=== PATIENT | male | born 1960 | race Caucasian/White ===

== ENCOUNTER → 2017-06-02 | Outpatient (CLI) | payer MEDICAID, SELFPAY | PROVIDERS: Visit Provider Physician Assistant | CPT/HCPCS: 80305 ==

== ENCOUNTER 2017-06-10 11:15 | Day surgery (SDC) | payer MEDICAID, SELFPAY | END 2017-06-10 12:25 | disposition home or self-care (01) | PROVIDERS: Family Provider Emergency Medicine; Visit Provider Nurse Anesthetist, Certified Registered | DX: M51.36 Other intervertebral disc degeneration, lumbar region (principal); M47.896 Other spondylosis, lumbar region | CPT/HCPCS: 64493; 64494; 64495 ==

== ENCOUNTER → 2017-07-19 16:04 | Outpatient (REF) | payer MEDICAID, SELFPAY ==
[2017-07-19 21:37] LABS: Amphetamine/Metha Screen,Urine Negative ng/mL (<1000); Barbiturates Screen,Urine Negative ng/mL (<200); Benzodiazepines Screen,Urine Negative ng/mL (200); Cannabinoid Screen,Urine Negative ng/mL (<50); Cocaine Screen,Urine Negative ng/g (<300); Methadone Screen,Urine Negative ng/mL (<300); Opiate Screen,Urine Positive ng/mL (<300); Phencyclidine Screen,Urine Negative ng/mL (<25)
== END ==
LOC: LAB 16:04
PROVIDERS: Visit Provider Emergency Medicine
DX: Z79.899 Other long term (current) drug therapy (principal)
CPT/HCPCS: 80305

== ENCOUNTER 2017-07-25 16:40 | Inpatient (IN) | payer MEDICAID, SELFPAY ==
--- NOTE | 2017-07-25 | CT_ITS ---
CT head/brain wo con HISTORY: Altered mental status, altered level of consciousness, memory loss ITS.REASON: ALTERED MENTAL STATUS ORDERING PHYSICIAN: Frank Trevizo MD PATIENT AGE: 56 years COMPARISON: None TECHNIQUE: Axial images obtained without contrast. Brain and bone windows reviewed. FINDINGS: No midline shift, mass effect, intracranial hemorrhage, hydrocephalus, or extra-axial fluid collection is evident. The calvarium has an unremarkable appearance. No mastoid effusion. There is an air-fluid level in the right sphenoid sinus and there is mucosal thickening of the ethmoid and sphenoid sinus.. IMPRESSION: 1. No acute intracranial findings. 2. Sinus disease.
[2017-07-25 17:10] VITALS: BP 130/84; PULSE 80; RESP 18; TEMP 37.5; O2SAT 97; BMI 30.7
--- NOTE | 2017-07-25 17:18 | XR_ITS ---
XR chest portable HISTORY: ITS.REASON: cough ORDERING PHYSICIAN: Frank Trevizo MD PATIENT AGE: 56 years COMPARISON: 03/24/2016 FINDINGS: The cardiomediastinal silhouette and pulmonary vascularity are within normal limits. Patchy density is present in both lower lobes consistent with bilateral lower lobe pneumonia. No acute bony abnormalities. IMPRESSION: Bilateral lower lobe pneumonia
--- NOTE | 2017-07-25 17:19 | HMH.EDGENADL ---
ED Disposition Clinical Impression: Pancreatitis, Elevated troponin Disposition: Still a Patient Condition on Discharge: Fair Referrals: Alonso Blankenship MD [Primary Care Provider] - - Critical Care Critical Care Time: No Attestation: On , the high probability of a clinically significant, sudden or life threatening deterioration of the following system(s) required my full and direct attention, intervention and personal management. The time I documented below is in addition to time spent performing reported procedures but includes the following listed in this critical care notation. Medical Decision Making - Medical Records MR Comment: 627 pm labs in status of ordered still. 2002 patient has come back with pancreatitis also his troponin is come back elevated and plan will be admission added on a CAT scan of his abdomen since he did have fever make sure there is no complication of the pancreatitis. Vital Signs: 07/25/17 17:10 07/25/17 18:42 Temperature 99.5 F Temperature Source Oral Pulse Rate [Left Radial] 80 85 Respiratory Rate 18 Blood Pressure [Right Arm] 130/84 125/76 Blood Pressure Mean [Right Arm] 99 92 Blood Pressure Source [Right Arm] Automatic Cuff Automatic Cuff Blood Pressure Position [Right Arm] Supine Supine 02 Sat by Pulse Oximetry 97 95 Oxygen Delivery Method Room Air Room Air - Lab Data Lab Results 07/25/17 18:15: WBC 8.3, RBC 5.05, Hgb 16.2, Hct 47.6, MCV 94.2 H, MCH 32.1 H, MCHC 34.0, RDW 12.3, Plt Count 180, MPV 8.2, Neut % (Auto) 78.3, Lymph % (Auto) 12.9, [place] % (Auto) 8.2, Eos % (Auto) 0.2, Baso % (Auto) 0.4, Neut # (Auto) 6.5, Lymph # (Auto) 1.1, [place] # (Auto) 0.7, Eos # (Auto) 0.0, Baso # (Auto) 0.0 07/25/17 18:15: Sodium 137, Potassium 3.0 L, Chloride 98, Carbon Dioxide 28, Anion Gap 14.0, BUN 31 H, Creatinine 1.18, Estimated Creat Clear 100, Estimated GFR 64, Est GFR ( Amer) 78, Glucose 156 H, Calcium 9.4, Total Bilirubin 0.5, AST 277 H, ALT 136 H, Alkaline Phosphatase 67, Lactate Dehydrogenase 698 H, Troponin I 0.15 H, Total Protein 8.5 H, Albumin 4.2, Globulin 4.3 H, Albumin/Globulin Ratio 1.0 L, Lipase 2279 H 07/25/17 18:25: Influenza Type A Ag Negative, Influenza Type B Ag Negative 07/25/17 18:59: Specimen Source Right radial, O2 % Room air, ABG pH 7.44, ABG pCO2 32.3 L, ABG pO2 59.4 L, ABG HCO3 21.6 L, ABG Total CO2 22.6 L, ABG O2 Saturation 92, ABG Base Excess -2.5 L, Jacob Test Patient unable Result diagrams: 07/25/17 18:15 07/25/17 18:15 Orders (Tests/Meds): ED MEDICATIONS Generic Name Dose Route Start Last Admin Trade Name Freq PRN Reason Stop Dose Admin Sodium Chloride 2 ml 07/25/17 18:34 Saline Flush 10ml Syringe IV 08/24/17 18:33 NEEDED PRN to Dilute Lorazepam inj Discontinued Medications Generic Name Dose Route Start Last Admin Trade Name Freq PRN Reason Stop Dose Admin Sodium Chloride 1,000 mls @ 999 mls/hr 07/25/17 17:30 07/25/17 18:14 Sod Chlor 0.9% 1000ml Bag IV 07/25/17 18:30 999 mls/hr .Q1H1M MARIA ESTHER Administration Sodium Chloride 1,000 mls @ 999 mls/hr 07/25/17 19:00 07/25/17 19:31 Sod Chlor 0.9% 1000ml Bag IV 07/25/17 20:00 999 mls/hr .Q1H1M MARIA ESTHER Administration Lorazepam 0.5 mg 07/25/17 18:34 07/25/17 18:40 Ativan 2mg/Ml Vial IV 07/25/17 18:35 0.5 mg ONCE ONE Administration Ondansetron HCl 4 mg 07/25/17 17:19 07/25/17 18:14 Zofran 4mg/2ml Vial IV 07/25/17 17:20 4 mg ONCE ONE Administration ORDERS Category Date Time Status CT abdomen pelvis wo con Stat Cat Scan 07/25/17 19:[address] head/brain wo con Routine Cat Scan 07/25/17 Taken CXR --portable [XR chest portable] Stat Exams 07/25/17 17:18 Taken Urinalysis and Microscopic Stat Lab 07/25/17 17:19 Ordered Blood Culture Stat Micro 07/25/17 18:15 Received EKG Request [ECG Request by /Claire] Stat Y 07/25/17 19:59 Ordered - Mehul Inquiry Pt receiving controlled substance: No General Adult HP
[2017-07-25 18:40] LABS: Basophils % 0.4 % (0.1-2.0); Eosinophils % 0.2 % (0.1-12.0); Hematocrit 47.6 % (42.0-52.0); Hemoglobin 16.2 g/dL (14.1-18.0); Lymphocytes # 1.1 K/mm3 (0.7-4.5); Lymphocytes % 12.9 K/mm3 (10-50); Mean Corpuscular Hemoglobin 32.1 pg (27.0-31.2); Mean Corpuscular Volume 94.2 fl (80-94); Mean Platelet Volume 8.2 fl (7.4-10.4); Monocytes # 0.7 K/mm3 (0.1-1.0); Monocytes % 8.2 % (1.7-9.3); Neutrophils # 6.5 K/mm3 (1.8-7.8); Neutrophils % 78.3 % (37.0-80.0); Platelet Count 180 K/mm3 (142-424); Red Blood Count 5.05 M/mm3 (4.60-6.20); Red Cell Distribution Width 12.3 % (11.5-17.5); White Blood Count 8.3 K/mm3 (4.8-10.8)
[2017-07-25 18:42] VITALS: BP 125/76; PULSE 85; O2SAT 95
[2017-07-25 18:57] LABS: Alanine Aminotransferase 136 U/L (12-78); Albumin Level 4.2 gm/dL (3.4-5.0); Alkaline Phosphatase 67 U/L (46-116); Aspartate Amino Transferase 277 U/L (15-37); Bilirubin,Total 0.5 mg/dL (0.2-1.0); Blood Urea Nitrogen 31 mg/dL (7-18); Calcium 9.4 mg/dL (8.5-10.1); Carbon Dioxide 28 mmol/L (21.0-32.0); Chloride 98 mmol/L (98-107); Creatinine Clearance Estimated 100 mL/min (0-300); Creatinine,Serum 1.18 mg/dL (0.70-1.30); Estimated Glomerular Filt Rate 64 ml/min (>60); GFR (African American) 78 ML/MIN (>60); Globulin 4.3 gm/dl (1.3-3.2); Glucose 156 mg/dL (74-106); Lactate Dehydrogenase 698 U/L (82-234); Sodium 137 mmol/L (136-145); Total Protein,Serum 8.5 gm/dL (6.4-8.2); Troponin I 0.15 ng/ml (0.00-0.06)
[2017-07-25 19:08] LABS: Lipase 2279 u/L (73-393)
[2017-07-25 19:34] LABS: ABG Base Excess -2.5 mmol/L (-2.4-2.3); ABG HCO3 21.6 mmhg (22.0-26.0); ABG Oxygen Saturation 92 % (90-100); ABG PCO2 32.3 mmhg (35.0-45.0); ABG PH 7.44 mmol/L (7.35-7.45); ABG PO2 59.4 mmhg (80-100); ABG TCO2 22.6 mmhg (23-27)
[2017-07-25 19:36] LABS: Allen's Test Patient Unable; Oxygen ROOM AIR %; Source Right Radial
--- NOTE | 2017-07-25 19:58 | CT_ITS ---
CT abdomen pelvis wo con CLINICAL INDICATION: Pancreatitis, fever, abdominal pain ITS.REASON: pancreatitis, fever ORDERING PHYSICIAN: Frank Trevizo MD PATIENT AGE: 56 years COMPARISON: None TECHNIQUE: Axial images obtained with sagittal and coronal reformats. PROCEDURE: Oral Contrast: None IV Contrast: None . FINDINGS: Patchy Airspace disease present in the right middle lobe, right lower lobe , lingula, and left lower lobe consistent with bilateral pneumonia. No obvious effusion. The liver, gallbladder, spleen, adrenal glands, and pancreas have an unremarkable unenhanced CT appearance. No renal calculi or hydronephrosis. No ureteral calculi. No intestinal obstruction or free air. No evidence of appendicitis. There are fluid-filled small and large bowel with a few air-fluid levels in colon. This may be seen with gastroenteritis or diarrhea disease. No pelvic mass or abnormal fluid collection or focal inflammatory change. No acute bony anomalies. IMPRESSION: 1. Bilateral pneumonia in the lung bases 2. Fluid in the small and large bowel with a few air-fluid levels in the large bowel which may be seen with diarrhea disease or enteritis. 3. Unremarkable pancreas on this unenhanced exam
--- NOTE | 2017-07-25 23:56 | PC.NURSE ---
PT HELPED TO THE BATHROOM AT THIS TIME.
--- NOTE | 2017-07-26 01:01 | PC.NURSE ---
PT SLEEPING AT THIS TIME
--- NOTE | 2017-07-26 01:13 | PC.NURSE ---
PT UP TO THE BATHROOM AT THIS TIME
--- NOTE | 2017-07-26 01:18 | PC.NURSE ---
PT BACK TO BED AT THIS TIME NO C/O OR NEEDS
[2017-07-26 07:03] LABS: Microscopic, Urine URINE MICROSCOPIC (MICROSCOPIC)
[2017-07-26 07:04] LABS: Appearance,Urine CLEAR (Clear); Bilirubin,Urine Negative (Negative); Blood, Urine TRACE-I (Negative); Color,Urine YELLOW (Yellow); Glucose,Urine (UA) Negative (Negative); Ketones,Urine TRACE (Negative); Leukocyte Esterase,Urine TRACE (Negative); Nitrate,Urine Negative (Negative); PH,Urine 6.5 (5.0-8.5); Protein,Urine 1+ (Negative); Specific Gravity, Urine 1.025 (1.005-1.030); Urobilinogen,Urine 0.2 EU/dl (0.2)
[2017-07-26 07:17] LABS: WBC,Urine Occasional #/hpf (0-3)
[2017-07-26 07:18] LABS: Bacteria,Urine 3+ /lpf; RBC,Urine Occasional #/hpf (0-3)
--- NOTE | 2017-07-26 07:44 | PC.NURSE ---
notified lab staff that pt has new lab orders, spoke with gabi.
[2017-07-26 08:10] LABS: Basophils % 0.2 % (0.1-2.0); Eosinophils % 0.2 % (0.1-12.0); Lymphocytes # 1.1 K/mm3 (0.7-4.5); Lymphocytes % 17.2 K/mm3 (10-50); Mean Corpuscular HGB Conc 34.1 g/dL (31.8-35.4); Mean Corpuscular Hemoglobin 31.9 pg (27.0-31.2); Mean Corpuscular Volume 93.6 fl (80-94); Mean Platelet Volume 8.3 fl (7.4-10.4); Monocytes # 0.6 K/mm3 (0.1-1.0); Monocytes % 8.4 % (1.7-9.3); Neutrophils # 4.9 K/mm3 (1.8-7.8); Neutrophils % 74.1 % (37.0-80.0); Platelet Count 165 K/mm3 (142-424); Red Cell Distribution Width 12.4 % (11.5-17.5); White Blood Count 6.6 K/mm3 (4.8-10.8)
[2017-07-26 08:28] LABS: Alanine Aminotransferase 124 U/L (12-78); Albumin Level 3.5 gm/dL (3.4-5.0); Alkaline Phosphatase 52 U/L (46-116); Amylase 117 U/L (25-125); Anion Gap 14.2 mEq/L (5-15); Aspartate Amino Transferase 251 U/L (15-37); Bilirubin,Total 0.3 mg/dL (0.2-1.0); Blood Urea Nitrogen 25 mg/dL (7-18); Calcium 8.6 mg/dL (8.5-10.1); Carbon Dioxide 23 mmol/L (21.0-32.0); Chloride 106 mmol/L (98-107); Creatinine Clearance Estimated 129 mL/min (0-300); Creatinine,Serum 0.91 mg/dL (0.70-1.30); Estimated Glomerular Filt Rate 86 ml/min (>60); GFR (African American) 105 ML/MIN (>60); Globulin 3.6 gm/dl (1.3-3.2); Glucose 144 mg/dL (74-106); Potassium 3.2 mmoL/L (3.5-5.1); Sodium 140 mmol/L (136-145); Total Protein,Serum 7.1 gm/dL (6.4-8.2); Troponin I 0.12 ng/ml (0.00-0.06)
[2017-07-26 08:51] LABS: Lipase 2541 u/L (73-393)
--- NOTE | 2017-07-26 08:51 | PC.NURSE ---
Dr. Corley at pt BS, stated will be placing order for U/S for pt.
--- NOTE | 2017-07-26 08:52 | US_ITS ---
US gallbladder HISTORY: ITS.REASON: pancreatitis ORDERING PHYSICIAN: Alonso Blankenship MD PATIENT AGE: 56 years COMPARISON: None FINDINGS: PANCREAS: Unremarkable. No obvious mass or abnormal fluid collection. No ductal dilatation LIVER: No focal liver lesions demonstrated. Homogeneous echogenicity. No intrahepatic biliary ductal dilatation evident RIGHT KIDNEY: Unremarkable. Normal size and echogenicity. No hydronephrosis GALLBLADDER: The gallbladder appears contracted with mild thickening of the wall measuring up to 5 mm. No obvious stones or pericholecystic fluid. Common bile duct is normal at 3 mm. Incidental note made of fluid-filled bowel. IMPRESSION: Contracted gallbladder with nonspecific gallbladder wall thickening. No obvious stones or pericholecystic fluid
--- NOTE | 2017-07-26 09:05 | HMH.HP ---
*Admission Date: 07/25/17 *Chief complaint: abd pain *History of present illness: this wm who has sob and vomiting with no chest pain and no etoh use was seen in the ed ates she has been feeling sick for the past 3-4 days has been lying in bed he complains of moderate whole body ache no radiation he denies any focal pain he states he has had some nausea vomiting diarrhea states she has had some cough productive of clear phlegm and he states he has had some feverishness and chills. [facility] History I have reviewed the patient's past medical history: Yes Medical History: Reports:: Gastroesophageal Reflux Disease(GERD), Hypertension Denies:: Cancer, Diabetes Mellitus Type 1, Diabetes Mellitus Type 2, MRSA Other Medical History: Reports: Other Other Surgeries: Yes: Other Amputation: No Fractures: No - *Social History Smoking Status: Current every day smoker Tobacco Type: cigarettes # Packs/Day (cigarettes): 2 Alcohol Intake: never Substance Use Type: denies use - Psychiatric History Expresses thoughts of harming self/others: None Suicide Plan Description: No Plan *Family Hx:: Hypertension Review of Systems - Review of Systems Review of systems:: pertinent systems reviewed and negative unless documented below - Constitutional Reports fever(s) - Eyes Denies change in vision - ENT Denies sore throat - *Cardiovascular Denies chest pain at rest - *Respiratory Reports chest congestion, Reports cough, Denies coughing up blood - *Gastrointestinal Reports abdominal pain, Reports nausea, Reports vomiting - *Genitourinary Denies blood in urine - *Musculoskeletal Denies joint pain, Denies joint swelling - Integumentary/Breasts Denies rash - *Neurologic Denies localized weakness, Denies tremor(s) - Psychiatric Denies anxiety Meds Home Medications Medication Instructions Recorded Confirmed Type albuterol sulfate HFA 90 2 puff INHALATION Q6H 07/06/17 07/25/17 History mcg/actuation aerosol inhaler Diclofenac Sodium [Diclofenac 75mg 75 mg PO BID 07/25/17 07/25/17 History Tab] Fluticasone Propionate 1 spray INTRANASAL DAILY 07/25/17 07/25/17 History Gabapentin [Gabapentin 400mg Cap] 400 mg PO TID 07/25/17 07/25/17 History Lisinopril [Prinivil 10mg Tablet] 10 mg PO BID 07/25/17 07/25/17 History Lisinopril/Hydrochlorothiazide 1 tab PO QAM 07/25/17 07/25/17 History [Lisinopril-Hctz 10-12.5 mg Tab] Montelukast Sodium [Singulair] 10 mg PO QHS 07/25/17 07/25/17 History Omeprazole [Omeprazole 20mg 20 mg PO QDAY 07/25/17 07/25/17 History Capsule] Tamsulosin HCl [Flomax] 0.4 mg PO QDAY 07/25/17 07/25/17 History Allergies Allergy/AdvReac Type Severity Reaction Status Date / Time No Known Allergies Allergy Verified 07/18/17 15:29 Exam Vital signs and Labs for Last 24 Hours: Temp Pulse Resp BP Pulse Ox 99.5 F 85 18 125/76 95 07/25/17 17:10 07/25/17 18:42 07/25/17 17:10 07/25/17 18:42 07/25/17 18:42 Laboratory Results - last 24 hr 07/26/17 06:50: Urine Color Yellow, Urine Appearance Clear, Urine pH 6.5, Ur Specific [place] 1.025, Urine Protein 1+, Urine Glucose (UA) Negative, Urine Ketones Trace, Urine Blood Trace-i, Urine Nitrate Negative, Urine Bilirubin Negative, Urine Urobilinogen 0.2, Ur Leukocyte Esterase Trace, Urine RBC Occasional, Urine WBC Occasional, Ur Squamous Epith Cells 3-5, Urine Bacteria 3+ 07/26/17 07:55: WBC 6.6, RBC 4.70, Hgb 15.0, Hct 44.0, MCV 93.6, MCH 31.9 H, MCHC 34.1, RDW 12.4, Plt Count 165, MPV 8.3, Neut % (Auto) 74.1, Lymph % (Auto) 17.2, [place] % (Auto) 8.4, Eos % (Auto) 0.2, Baso % (Auto) 0.2, Neut # (Auto) 4.9, Lymph # (Auto) 1.1, [place] # (Auto) 0.6, Eos # (Auto) 0.0, Baso # (Auto) 0.0 07/26/17 07:55: Sodium 140, Potassium 3.2 L, Chloride 106, Carbon Dioxide 23, Anion Gap 14.2, BUN 25 H, Creatinine 0.91 D, Estimated Creat Clear 129, Estimated GFR 86, Est GFR ( Amer) 105 D, Glucose 144 H, Calcium 8.6, Total Bilirubin 0.3, AST 251 H, ALT 1
--- NOTE | 2017-07-26 10:13 | HMH.GSCON ---
*Admission Date: 07/25/17 *Chief complaint: sick *History of present illness: This is a 56-year-old gentleman who presented emergency department with a 3-4 day history of whole body aches . Some nausea, vomiting and intermittent diarrhea has also been noted. Is also noted a a few days . Evaluation emergency department revealed an elevated troponin, and elevated lipase, and possible bilateral pneumonia noted on CT scan. Surgical service was consulted secondary to pancreatitis. Recent alcohol intake and no recent change in medications. Review of Systems - Constitutional Reports body ache(s) - Eyes Denies change in vision - *Cardiovascular Denies chest pain - *Respiratory Reports cough - *Gastrointestinal Reports change in stools, Reports loose stools, Reports nausea, Reports vomiting - *Genitourinary Denies blood in urine - *Neurologic Denies localized weakness, Denies tremor(s) - Hematologic/Lymphatic Denies easy bleeding H History Medical History: Reports:: Gastroesophageal Reflux Disease(GERD), Hypertension Denies:: Cancer, Diabetes Mellitus Type 1, Diabetes Mellitus Type 2, MRSA Other Medical History: Reports: Other Other Surgeries: Yes: Other Amputation: No Fractures: No - *Social History Smoking Status: Current every day smoker Tobacco Type: cigarettes # Packs/Day (cigarettes): 2 Alcohol Intake: never Substance Use Type: denies use - Psychiatric History Expresses thoughts of harming self/others: None Suicide Plan Description: No Plan *Family Hx:: Hypertension Meds Home Medications Medication Instructions Recorded Confirmed Type albuterol sulfate HFA 90 2 puff INHALATION Q6H 07/06/17 07/25/17 History mcg/actuation aerosol inhaler Diclofenac Sodium [Diclofenac 75mg 75 mg PO BID 07/25/17 07/25/17 History Tab] Fluticasone Propionate 1 spray INTRANASAL DAILY 07/25/17 07/25/17 History Gabapentin [Gabapentin 400mg Cap] 400 mg PO TID 07/25/17 07/25/17 History Lisinopril [Prinivil 10mg Tablet] 10 mg PO BID 07/25/17 07/25/17 History Lisinopril/Hydrochlorothiazide 1 tab PO QAM 07/25/17 07/25/17 History [Lisinopril-Hctz 10-12.5 mg Tab] Montelukast Sodium [Singulair] 10 mg PO QHS 07/25/17 07/25/17 History Omeprazole [Omeprazole 20mg 20 mg PO QDAY 07/25/17 07/25/17 History Capsule] Tamsulosin HCl [Flomax] 0.4 mg PO QDAY 07/25/17 07/25/17 History Allergies Allergy/AdvReac Type Severity Reaction Status Date / Time No Known Allergies Allergy Verified 07/18/17 15:29 Exam Vital signs and Labs for Last 24 Hours: Temp Pulse Resp BP Pulse Ox 99.5 F 85 18 125/76 95 07/25/17 17:10 07/25/17 18:42 07/25/17 17:10 07/25/17 18:42 07/25/17 18:42 Laboratory Results - last 24 hr 07/26/17 06:50: Urine Color Yellow, Urine Appearance Clear, Urine pH 6.5, Ur Specific [place] 1.025, Urine Protein 1+, Urine Glucose (UA) Negative, Urine Ketones Trace, Urine Blood Trace-i, Urine Nitrate Negative, Urine Bilirubin Negative, Urine Urobilinogen 0.2, Ur Leukocyte Esterase Trace, Urine RBC Occasional, Urine WBC Occasional, Ur Squamous Epith Cells 3-5, Urine Bacteria 3+ 07/26/17 07:55: WBC 6.6, RBC 4.70, Hgb 15.0, Hct 44.0, MCV 93.6, MCH 31.9 H, MCHC 34.1, RDW 12.4, Plt Count 165, MPV 8.3, Neut % (Auto) 74.1, Lymph % (Auto) 17.2, [place] % (Auto) 8.4, Eos % (Auto) 0.2, Baso % (Auto) 0.2, Neut # (Auto) 4.9, Lymph # (Auto) 1.1, [place] # (Auto) 0.6, Eos # (Auto) 0.0, Baso # (Auto) 0.0 07/26/17 07:55: Sodium 140, Potassium 3.2 L, Chloride 106, Carbon Dioxide 23, Anion Gap 14.2, BUN 25 H, Creatinine 0.91 D, Estimated Creat Clear 129, Estimated GFR 86, Est GFR ( Amer) 105 D, Glucose 144 H, Calcium 8.6, Total Bilirubin 0.3, AST 251 H, ALT 124 H, Alkaline Phosphatase 52, Troponin I 0.12 H, Total Protein 7.1, Albumin 3.5 D, Globulin 3.6 H, Albumin/Globulin Ratio 1.0 L, Amylase 117, Lipase 2541 H - Constitutional no acute distress - *Routine Respiratory Exam Absent: respira
--- NOTE | 2017-07-26 10:17 | P.CONS_ITS ---
*Admission Date: 07/25/17 *Chief complaint: sick *History of present illness: This is a 56-year-old gentleman who presented emergency department with a 3-4 day history of whole body aches . Some nausea, vomiting and intermittent diarrhea has also been noted. Is also noted a a few days . Evaluation emergency department revealed an elevated troponin, and elevated lipase, and possible bilateral pneumonia noted on CT scan. Surgical service was consulted secondary to pancreatitis. Recent alcohol intake and no recent change in medications. Review of Systems - Constitutional Reports body ache(s) - Eyes Denies change in vision - *Cardiovascular Denies chest pain - *Respiratory Reports cough - *Gastrointestinal Reports change in stools, Reports loose stools, Reports nausea, Reports vomiting - *Genitourinary Denies blood in urine - *Neurologic Denies localized weakness, Denies tremor(s) - Hematologic/Lymphatic Denies easy bleeding H History Medical History: Reports:: Gastroesophageal Reflux Disease(GERD), Hypertension Denies:: Cancer, Diabetes Mellitus Type 1, Diabetes Mellitus Type 2, MRSA Other Medical History: Reports: Other Other Surgeries: Yes: Other Amputation: No Fractures: No - *Social History Smoking Status: Current every day smoker Tobacco Type: cigarettes # Packs/Day (cigarettes): 2 Alcohol Intake: never Substance Use Type: denies use - Psychiatric History Expresses thoughts of harming self/others: None Suicide Plan Description: No Plan *Family Hx:: Hypertension Meds Home Medications Medication Instructions Recorded Confirmed Type albuterol sulfate HFA 90 2 puff INHALATION Q6H 07/06/17 07/25/17 History mcg/actuation aerosol inhaler Diclofenac Sodium [Diclofenac 75mg 75 mg PO BID 07/25/17 07/25/17 History Tab] Fluticasone Propionate 1 spray INTRANASAL DAILY 07/25/17 07/25/17 History Gabapentin [Gabapentin 400mg Cap] 400 mg PO TID 07/25/17 07/25/17 History Lisinopril [Prinivil 10mg Tablet] 10 mg PO BID 07/25/17 07/25/17 History Lisinopril/Hydrochlorothiazide 1 tab PO QAM 07/25/17 07/25/17 History [Lisinopril-Hctz 10-12.5 mg Tab] Montelukast Sodium [Singulair] 10 mg PO QHS 07/25/17 07/25/17 History Omeprazole [Omeprazole 20mg 20 mg PO QDAY 07/25/17 07/25/17 History Capsule] Tamsulosin HCl [Flomax] 0.4 mg PO QDAY 07/25/17 07/25/17 History Allergies Allergy/AdvReac Type Severity Reaction Status Date / Time No Known Allergies Allergy Verified 07/18/17 15:29 Exam Vital signs and Labs for Last 24 Hours: Temp Pulse Resp BP Pulse Ox 99.5 F 85 18 125/76 95 07/25/17 17:10 07/25/17 18:42 07/25/17 17:10 07/25/17 18:42 07/25/17 18:42 Laboratory Results - last 24 hr 07/26/17 06:50: Urine Color Yellow, Urine Appearance Clear, Urine pH 6.5, Ur Specific [place] 1.025, Urine Protein 1+, Urine Glucose (UA) Negative, Urine Ketones Trace, Urine Blood Trace-i, Urine Nitrate Negative, Urine Bilirubin Negative, Urine Urobilinogen 0.2, Ur Leukocyte Esterase Trace, Urine RBC Occasional, Urine WBC Occasional, Ur Squamous Epith Cells 3-5, Urine Bacteria 3+ 07/26/17 07:55: WBC 6.6, RBC 4.70, Hgb 15.0, Hct 44.0, MCV 93.6, MCH 31.9 H, MCHC 34.1, RDW 12.4, Plt Count 165, MPV 8.3, Neut % (Auto) 74.1, Lymph % (Auto) 17.2, [place] % (Auto) 8.4, Eos % (Auto) 0.2, Baso % (Auto) 0.2, Neut # (Auto) 4.9 , Lymph # (Auto
--- NOTE | 2017-07-26 10:46 | PC.NURSE ---
contacted second floor to check on status of bed availability, stated no bed available at this time, having pt to discharge but none have left yet.
--- NOTE | 2017-07-26 11:34 | PC.NURSE ---
pt return from u/s at this time.
[2017-07-26 13:15] VITALS: BP 123/83; PULSE 75; RESP 18; TEMP 36.9; O2SAT 95; BMI 27.2
[2017-07-26 13:40] VITALS: BP 123/83; PULSE 75; RESP 18; TEMP 36.9; O2SAT 95
--- NOTE | 2017-07-26 14:03 | CA_ITS ---
PROCEDURE: 2-D M-mode and color Doppler study INDICATIONS FOR THE TEST: Chest pain COPD Heart MurmurX Tobacco Smoking Palpitations Fatigue Syncope Edema Hypertension Diabetes Mellitus Rheumatic Fever SOBXDOE ObesityXHyperlipidemia Family History HD Additional History PNEUMONIA,ELEVATED TROP PATIENT INFORMATION HEIGHT: 71 WEIGHT:195 GENDER: Male B/P:125/76 2-D/M-MODE INTERPRETATION: 2-D MEASUREMENTS OBSERVED VALUES IN CMS Right Ventricular Dimension (RVDd) 2.3 Interventricular Septum (Thickness)(IVsd) 1.03 Left Ventricular Internal Dimensions(LVIDd) 4.9 Left Ventricular Posterior Wall (Thickness)(LVPWd) 1.2 Aortic Root 3.7 Aortic Cusp Separation 2.6 Left Atrial Dimensions (LAD) 3.5 2D 1. Left atrium is qualitatively mildly enlarged, left ventricle is normal size, there is no concentric left ventricular hypertrophy, visually estimated ejection fraction of 50% with no obvious regional wall motion abnormality, there is abnormal septal motion. 2. The right atrium and right ventricle are moderately enlarged, contractility of the right ventricle is normal. 3. The aortic valve is minimally thickened and fibrosed. 4. The mitral and tricuspid valve are grossly normal. 5. The pulmonic valve is poorly visualized. 6. No significant pericardial effusion noted. DOPPLER INTERROGATION: Doppler interrogation of the aortic, mitral and tricuspid valvular presence of mild mitral and tricuspid regurgitation, tricuspid and jet velocity is insufficient for calculation of the right ventricular systolic pressure, grade 1 diastolic dysfunction seen without tissue Doppler evidence of raised left atrial pressure. CONCLUSION: 1. Mildly enlarged left atrium, normal left ventricular size, visually estimated ejection fraction 50% with no obvious regional wall motion abnormality, endocardial surface are somewhat poorly visualized. Grade 1 diastolic dysfunction seen without tissue Doppler evidence of raised left atrial pressure. 2. Mildly enlarged right atrium and right ventricle, contractility of the right ventricle is normal. 3. Mild mitral and tricuspid regurgitation 4. No significant pericardial effusion noted.
[2017-07-26 14:53] LABS: Troponin I 0.11 ng/ml (0.00-0.06)
[2017-07-26 15:58] VITALS: BP 121/72; PULSE 62; RESP 18; TEMP 36.8; O2SAT 96
--- NOTE | 2017-07-26 17:44 | PC.NURSE ---
pt has stated no complaints since arrival to floor. iv patent and infusing. v/s/s. pt ordered clear liquid diet and tolerating well. call light in reach. pt instructed to ask for assistance. will continue to monitor pt condition. pt has requested that no information be given out to anyone. established a password. reinforced that information will not be given out to anyone that does not have password.
--- NOTE | 2017-07-26 19:24 | PC.NURSE ---
1838 pt complaining of cough and requesting medicine. paged at this time
--- NOTE | 2017-07-26 19:25 | PC.NURSE ---
report given to diego kong
[2017-07-26 20:00] VITALS: BP 114/72; PULSE 72; RESP 20; TEMP 36.9; O2SAT 95
--- NOTE | 2017-07-26 22:43 | PC.NURSE ---
NOTIFIED DORIAN AT 2230 OF PATIENT NEEDING COUGH MEDICATION. ALSO ASK IF MD WAS AWARE OF ELEVATED TROPONIN. MD STATES TALKED WITH LDR NURSE, BELIEVES RELATED TO OTHER ILLNESS SINCE EKG NORMAL
[2017-07-27] VITALS (8 sets, daily range): BP systolic 103–111; BP diastolic 55–63; PULSE 60–79; RESP 18–20; TEMP 36.3–37.7; O2SAT 85–97; BMI 28.4
--- NOTE | 2017-07-27 03:59 | PC.NURSE ---
IN BED RESTING. HAS SLEPT MOST OF SHIFT. STATED WAS AWOKE 2 X FROM COUGHING. STATED COUGH MEDICATION DOESN'T LAST LONG ENOUGH. SNORED VERY LOUDLY WHILE SLEEPING, NO APNEA NOTED. LUNGS HAD RHONCHI BILAT. RESP EVEN AND NON LABORED. HAS A PRODUCTIVE COUGH, SPUTUM IS WHITE. DENIES SOA OR PAIN. IV IS PATENT. INSTRUCTED TO NOTIFY STAFF IF ANY NEEDS. BED LOCKED IN LOW POSITION, SIDE RALES UP X 2. CALL LIGHT WITHIN REACH. WILL CONTINUE TO MONITOR.
[2017-07-27 06:49] LABS: Basophils % 0.3 % (0.1-2.0); Eosinophils % 0.1 % (0.1-12.0); Hematocrit 34.7 % (42.0-52.0); Lymphocytes # 1.4 K/mm3 (0.7-4.5); Lymphocytes % 26.8 K/mm3 (10-50); Mean Corpuscular HGB Conc 34.4 g/dL (31.8-35.4); Mean Corpuscular Hemoglobin 32.4 pg (27.0-31.2); Mean Corpuscular Volume 94.2 fl (80-94); Mean Platelet Volume 8.2 fl (7.4-10.4); Monocytes # 0.4 K/mm3 (0.1-1.0); Monocytes % 7.3 % (1.7-9.3); Neutrophils # 3.4 K/mm3 (1.8-7.8); Neutrophils % 65.4 % (37.0-80.0); Platelet Count 132 K/mm3 (142-424); Red Blood Count 3.68 M/mm3 (4.60-6.20); Red Cell Distribution Width 12.4 % (11.5-17.5); White Blood Count 5.2 K/mm3 (4.8-10.8)
[2017-07-27 07:01] LABS: Lipase 2043 u/L (73-393)
[2017-07-27 07:03] LABS: Alanine Aminotransferase 92 U/L (12-78); Albumin Level 2.7 gm/dL (3.4-5.0); Albumin/Globulin Ratio 0.9 (1.1-1.8); Alkaline Phosphatase 38 U/L (46-116); Amylase 119 U/L (25-125); Anion Gap 9.1 mEq/L (5-15); Aspartate Amino Transferase 169 U/L (15-37); Bilirubin,Total 0.6 mg/dL (0.2-1.0); Blood Urea Nitrogen 13 mg/dL (7-18); Carbon Dioxide 25 mmol/L (21.0-32.0); Chloride 108 mmol/L (98-107); Chol/HDL Ratio 4.3 (1-3.5); Cholesterol 78 mg/dL (140-200); Creatinine Clearance Estimated 145 mL/min (0-300); Creatinine,Serum 0.75 mg/dL (0.70-1.30); Estimated Glomerular Filt Rate 108 ml/min (>60); GFR (African American) 131 ML/MIN (>60); Globulin 2.9 gm/dl (1.3-3.2); Glucose 76 mg/dL (74-106); HDL Cholesterol 18 mg/dL (27-67); LDL Cholesterol 21 mg/dL (0-130); Potassium 3.1 mmoL/L (3.5-5.1); Sodium 139 mmol/L (136-145); Total Protein,Serum 5.6 gm/dL (6.4-8.2); Triglycerides 194 mg/dL (30-200); VLDL Cholesterol 39 mg/dL (0-40)
[2017-07-27 07:26] LABS: Calcium 7.4 mg/dL (8.5-10.1)
[2017-07-27 07:30] LABS: Hemoglobin 11.9 g/dL (14.1-18.0)
--- NOTE | 2017-07-27 08:20 | P.PN_ITS ---
Subjective Patient reports: no new complaints Exam Vital signs and Labs for Last 24 Hours: Temp Pulse Resp BP Pulse Ox 99.5 F 60 20 104/55 97 07/27/17 07:40 07/27/17 07:40 07/27/17 07:40 07/27/17 07:40 07/27/17 07:40 Laboratory Results - last 24 hr 07/26/17 06:50: Urine Color Yellow, Urine Appearance Clear, Urine pH 6.5, Ur Specific [place] 1.025, Urine Protein 1+, Urine Glucose (UA) Negative, Urine Ketones Trace, Urine Blood Trace-i, Urine Nitrate Negative, Urine Bilirubin Negative, Urine Urobilinogen 0.2, Ur Leukocyte Esterase Trace, Urine RBC Occasional, Urine WBC Occasional, Ur Squamous Epith Cells 3-5, Urine Bacteria 3+ 07/26/17 07:55: Sodium 140, Potassium 3.2 L, Chloride 106, Carbon Dioxide 23, Anion Gap 14.2, BUN 25 H, Creatinine 0.91 D, Estimated Creat Clear 129, Estimated GFR 86, Est GFR ( Amer) 105 D, Glucose 144 H, Calcium 8.6, Total Bilirubin 0.3, AST 251 H, ALT 124 H, Alkaline Phosphatase 52, Troponin I 0.12 H, Total Protein 7.1, Albumin 3.5 D, Globulin 3.6 H, Albumin/Globulin Ratio 1.0 L, Amylase 117, Lipase 2541 H 07/26/17 14:23: Troponin I 0.11 H 07/27/17 06:30: WBC 5.2, RBC 3.68 L, Hgb 11.9 L D, Hct 34.7 L, MCV 94.2 H, MCH 32.4 H, MCHC 34.4, RDW 12.4, Plt Count 132 L, MPV 8.2, Neut % (Auto) 65.4, Lymph % (Auto) 26.8, [place] % (Auto) 7.3, Eos % (Auto) 0.1, Baso % (Auto) 0.3, Neut # (Auto) 3.4, Lymph # (Auto) 1.4, [place] # (Auto) 0.4, Eos # (Auto) 0.0, Baso # (Auto) 0.0 07/27/17 06:30: Sodium 139, Potassium 3.1 L, Chloride 108 H, Carbon Dioxide 25, Anion Gap 9.1, BUN 13 D, Creatinine 0.75, Estimated Creat Clear 145, Estimated GFR 108, Est GFR ( Amer) 131 D, Glucose 76 D, Calcium 7.4 L D, Total Bilirubin 0.6, AST 169 H D, ALT 92 H D, Alkaline Phosphatase 38 L, Total Protein 5.6 L, Albumin 2.7 L D, Globulin 2.9, Albumin/Globulin Ratio 0.9 L, Triglycerides 194, Cholesterol 78 L, LDL Cholesterol 21, VLDL Cholesterol 39, HDL Cholesterol 18 L, Cholesterol/HDL Ratio 4.3 H, Amylase 119 07/27/17 06:30: Lipase 2043 H I & O for Last 24 hours: Intake & Output 07/24/17 07/25/17 07/26/17 07/27/17 11:59 11:59 11:59 11:59 Intake Total 2680 / 2680 Balance 2680 / 2680 Weight 203 lb 6 oz Microbiology Reports for the Last 24 Hours: Microbiology 07/26/17 06:50 Urine,Clean Catch Urine Culture - Preliminary Gram Positive Cocci - Constitutional no acute distress - *Routine Respiratory Exam Absent: respiratory distress - *Routine Abdominal Exam Present: soft. Absent: tenderness Progress Note: A&P (1) CAP (community acquired pneumonia) Status: Acute Current Visit: Yes (2) Pancreatitis Status: Acute Assessment and plan: Slight improvement biochemically. Etiology indeterminate. No gallstones noted on ultrasound. No recent medical changes or alcohol intake. Continue to follow amylase/lipase and serial abdominal exams. Current Visit: Yes
--- NOTE | 2017-07-27 10:02 | P.PN_ITS ---
Internal Medicine - PN: Subj *Date: 07/27/17 *Time: 10:00 Interval history: doing better Exam Vital signs and Labs for Last 24 Hours: Temp Pulse Resp BP Pulse Ox 99.5 F 60 20 104/55 97 07/27/17 07:40 07/27/17 07:40 07/27/17 07:40 07/27/17 07:40 07/27/17 07:40 Laboratory Results - last 24 hr 07/26/17 06:50: Urine Color Yellow, Urine Appearance Clear, Urine pH 6.5, Ur Specific [place] 1.025, Urine Protein 1+, Urine Glucose (UA) Negative, Urine Ketones Trace, Urine Blood Trace-i, Urine Nitrate Negative, Urine Bilirubin Negative, Urine Urobilinogen 0.2, Ur Leukocyte Esterase Trace, Urine RBC Occasional, Urine WBC Occasional, Ur Squamous Epith Cells 3-5, Urine Bacteria 3+ 07/26/17 14:23: Troponin I 0.11 H 07/27/17 06:30: WBC 5.2, RBC 3.68 L, Hgb 11.9 L D, Hct 34.7 L, MCV 94.2 H, MCH 32.4 H, MCHC 34.4, RDW 12.4, Plt Count 132 L, MPV 8.2, Neut % (Auto) 65.4, Lymph % (Auto) 26.8, [place] % (Auto) 7.3, Eos % (Auto) 0.1, Baso % (Auto) 0.3, Neut # (Auto) 3.4, Lymph # (Auto) 1.4, [place] # (Auto) 0.4, Eos # (Auto) 0.0, Baso # (Auto) 0.0 07/27/17 06:30: Sodium 139, Potassium 3.1 L, Chloride 108 H, Carbon Dioxide 25, Anion Gap 9.1, BUN 13 D, Creatinine 0.75, Estimated Creat Clear 145, Estimated GFR 108, Est GFR ( Amer) 131 D, Glucose 76 D, Calcium 7.4 L D, Total Bilirubin 0.6, AST 169 H D, ALT 92 H D, Alkaline Phosphatase 38 L, Total Protein 5.6 L, Albumin 2.7 L D, Globulin 2.9, Albumin/Globulin Ratio 0.9 L, Triglycerides 194, Cholesterol 78 L, LDL Cholesterol 21, VLDL Cholesterol 39, HDL Cholesterol 18 L, Cholesterol/HDL Ratio 4.3 H, Amylase 119 07/27/17 06:30: Lipase 2043 H I & O for Last 24 hours: Intake & Output 07/24/17 07/25/17 07/26/17 07/27/17 11:59 11:59 11:59 11:59 Intake Total 2680 / 2680 Balance 2680 / 2680 Weight 203 lb 6 oz Microbiology Reports for the Last 24 Hours: Microbiology 07/26/17 06:50 Urine,Clean Catch Urine Culture - Preliminary Gram Positive Cocci - Constitutional no acute distress - *Routine HEENT Exam Head: Present: normocephalic Eye: Present: EOMI, PERRL ENT: Present: mucous membranes dry - *Routine Neck Exam Present: supple - *Routine Respiratory Exam Absent: respiratory distress - *Routine Cardiovascular Exam Present: RRR - *Routine Abdominal Exam Present: soft - *Routine Extremities Exam Present: cyanosis - *Routine Skin Exam Present: intact - *Routine Neurological Exam Present: alert, oriented X3, CN II-XII intact - Routine Psychiatric Exam Present: normal affect Assessment and Plan (1) CAP (community acquired pneumonia) Current visit: Yes Status: Acute Category: Medical Code(s): J18.9 - Pneumonia, unspecified organism (2) Pancreatitis Current visit: Yes Status: Acute Qualifiers: Chronicity: acute Pancreatitis type: unspecified pancreatitis type Category: Medical Code(s): K85.90 - Acute pancreatitis without necrosis or infection, unspecified
--- NOTE | 2017-07-27 19:44 | PC.NURSE ---
THIS IS A 56 YEAR OLD WHITE MALE THAT PRESENTED TO THE HOSPITAL ON 07/26 WITH A DIAGNOSIS OF ACUTE PANCREATITIS AND BILATERAL PNEUMONIA. HE HAS DONE WELL TODAY, HE CONTINUES TO HAVE A COUGH THAT IS NON PRODUCTIVE. HE IS SCHEDULED TO HAVE NEB TREATMENTS PRN, HE HAS TOLERATED THESE WELL AND FEELS THAT THESE TREATMENTS HAS HELPED HIS BREATHING. IV FLUIDS ARE INFUSING AND HE HAS IV ANTIBIOTICS ORDERED WELL. WILL CONTINUE TO MONITOR. PRISCILLA MORGAN, MSN, RN
[2017-07-28] VITALS (11 sets, daily range): BP systolic 105–132; BP diastolic 54–68; PULSE 65–88; RESP 16–22; TEMP 36.8–37.6; O2SAT 88–96
--- NOTE | 2017-07-28 05:06 | PC.NURSE ---
PT HAS C/O SOA AT TIMES THIS SHIFT. RA SAT WAS 89%, PT WAS PLACED ON 2 L NC. BREATHING TREATMENTS ADMIN PER AUG, NEEDED. LUNGS THIS AM NOTED TO HAVE RHONCHI AND CRACKLES TO BASES. DURING SLEEP PT WAS NOTED TO BE SNORING LOUDLY. PT ALSO NOTED TO HAVE 3 COUGHING EPISODES. HE STATED HE VOMITED, WAS ADMIN ZOFRAN FOR NAUSEA AND TESSALON PERLES FOR COUGH. PT O2 SAT IS 94% AT THIS TIME ON 2L NC. PT HAS DENIED ANY PAIN. NO EDEMA NOTED. MEDS ADMIN PER AUG. NO OTHER CONCERNS AT THIS TIME. WILL CONT TO MONITOR.
[2017-07-28 06:44] LABS: Amylase 106 U/L (25-125); Lipase 1609 u/L (73-393)
--- NOTE | 2017-07-28 07:00 | P.PN_ITS ---
Subjective Patient reports: other (no increased abd pain. he does describe some trouble breathing because of pneumonia overnight) Exam Vital signs and Labs for Last 24 Hours: Temp Pulse Resp BP Pulse Ox 98.2 F 70 20 105/67 96 07/28/17 04:00 07/28/17 04:00 07/28/17 04:00 07/28/17 04:00 07/28/17 04:00 Laboratory Results - last 24 hr 07/26/17 06:50: Urine Color Yellow, Urine Appearance Clear, Urine pH 6.5, Ur Specific [place] 1.025, Urine Protein 1+, Urine Glucose (UA) Negative, Urine Ketones Trace, Urine Blood Trace-i, Urine Nitrate Negative, Urine Bilirubin Negative, Urine Urobilinogen 0.2, Ur Leukocyte Esterase Trace, Urine RBC Occasional, Urine WBC Occasional, Ur Squamous Epith Cells 3-5, Urine Bacteria 3+ 07/27/17 06:30: WBC 5.2, RBC 3.68 L, Hgb 11.9 L D, Hct 34.7 L, MCV 94.2 H, MCH 32.4 H, MCHC 34.4, RDW 12.4, Plt Count 132 L, MPV 8.2, Neut % (Auto) 65.4, Lymph % (Auto) 26.8, [place] % (Auto) 7.3, Eos % (Auto) 0.1, Baso % (Auto) 0.3, Neut # (Auto) 3.4, Lymph # (Auto) 1.4, [place] # (Auto) 0.4, Eos # (Auto) 0.0, Baso # (Auto) 0.0 07/27/17 06:30: Sodium 139, Potassium 3.1 L, Chloride 108 H, Carbon Dioxide 25, Anion Gap 9.1, BUN 13 D, Creatinine 0.75, Estimated Creat Clear 145, Estimated GFR 108, Est GFR ( Amer) 131 D, Glucose 76 D, Calcium 7.4 L D, Total Bilirubin 0.6, AST 169 H D, ALT 92 H D, Alkaline Phosphatase 38 L, Total Protein 5.6 L, Albumin 2.7 L D, Globulin 2.9, Albumin/Globulin Ratio 0.9 L, Triglycerides 194, Cholesterol 78 L, LDL Cholesterol 21, VLDL Cholesterol 39, HDL Cholesterol 18 L, Cholesterol/HDL Ratio 4.3 H, Amylase 119 07/27/17 06:30: Lipase 2043 H 07/28/17 06:00: Amylase 106 D, Lipase 1609 H I & O for Last 24 hours: Intake & Output 07/25/17 07/26/17 07/27/17 07/28/17 11:59 11:59 11:59 11:59 Intake Total 2680 / 2680 1240 / 1240 Output Total 600 / 600 Balance 2680 / 2680 640 / 640 Weight 203 lb 6 oz 203 lb 5.988 oz Microbiology Reports for the Last 24 Hours: Microbiology 07/26/17 06:50 Urine,Clean Catch Urine Culture - Preliminary Gram Positive Cocci - Constitutional no acute distress - *Routine Respiratory Exam Absent: respiratory distress - *Routine Cardiovascular Exam Present: RRR - *Routine Abdominal Exam Present: soft Progress Note: A&P (1) CAP (community acquired pneumonia) Status: Acute Assessment and plan: as per PCP Current Visit: Yes (2) Pancreatitis Status: Acute Assessment and plan: Etiology remains uncertain No increased abdominal/back pain Resolving biochemically Will advance to low fat diet and continue to monitor Current Visit: Yes
--- NOTE | 2017-07-28 07:47 | PC.NURSE ---
HAND OFF TO Hesham KRAMER
--- NOTE | 2017-07-28 07:50 | HMH.PHAVTE ---
[facility] Pharmacy VTE Monitoring - Patient Demographics Admission date: 07/25/17 Report Date: 07/28/17 Time: 07:50 Allergies/Adverse Reactions: Patient Allergies No Known Allergies Allergy (Verified 07/18/17 15:29) Height: 1.8 m Weight: 92.249 kg Patient Problems: Current Active Problems Pancreatitis (Acute) Elevated troponin (Acute) CAP (community acquired pneumonia) (Acute) - VTE Risk Labs: VTE Related Lab Results Hgb 11.9 g/dL (14.1-18.0) L D 07/27/17 06:30 Hct 34.7 % (42.0-52.0) L 07/27/17 06:30 Plt Count 132 K/mm3 (142-424) L 07/27/17 06:30 BUN 13 mg/dL (7-18) D 07/27/17 06:30 Creatinine 0.75 mg/dL (0.70-1.30) 07/27/17 06:30 Estimated Creat Clear 145 mL/min (0-300) 07/27/17 06:30 Was VTE Risk Assessment Performed: Yes VTE Score: 1 VTE Risk Level: Very Low Risk - Prophylaxis VTE Prophylaxis Ordered?: Yes Types of VTE Prophylaxis: TEDS Knee High Location of Applied Device: Bilateral Lower Extremeties - VTE Diagnosis Confirmed Treatment or plan recommended: Continue Current Treatment
--- NOTE | 2017-07-28 09:12 | XR_ITS ---
XR chest 2V HISTORY: Shortness of breath ITS.REASON: sob ORDERING PHYSICIAN: Alonso Blankenship MD PATIENT AGE: 56 years COMPARISON: 07/25/2017 FINDINGS: The cardiomediastinal silhouette and pulmonary vascularity are within normal limits. Bilateral pneumonia once again noted and is worse in the left upper and left lower lung zone and right upper lobe with no change in the consolidation in the right middle lobe. No effusions. IMPRESSION: Worsening bilateral pneumonia
--- NOTE | 2017-07-28 09:13 | HMH.ACPN2 ---
Internal Medicine - PN: Subj *Date: 07/28/17 *Time: 09:13 Exam Vital signs and Labs for Last 24 Hours: Temp Pulse Resp BP Pulse Ox 98.6 F 75 18 132/54 94 L 07/28/17 07:41 07/28/17 07:41 07/28/17 07:41 07/28/17 07:41 07/28/17 07:41 Laboratory Results - last 24 hr 07/28/17 06:00: Amylase 106 D, Lipase 1609 H I & O for Last 24 hours: Intake & Output 07/25/17 07/26/17 07/27/17 07/28/17 11:59 11:59 11:59 11:59 Intake Total 2680 / 2680 6407 / 6407 Output Total 600 / 600 Balance 2680 / 2680 5807 / 5807 Weight 203 lb 6 oz 203 lb 5.988 oz Microbiology Reports for the Last 24 Hours: Microbiology 07/26/17 06:50 Urine,Clean Catch Urine Culture - Final Staphylococcus aureus - Constitutional no acute distress - *Routine HEENT Exam Head: Present: normocephalic Eye: Present: PERRL ENT: Present: mucous membranes moist - *Routine Neck Exam Present: supple, full ROM - *Routine Respiratory Exam Present: CTA bilaterally - *Routine Cardiovascular Exam Present: RRR - *Routine Abdominal Exam Present: soft, normoactive bowel sounds - *Routine Extremities Exam Present: full ROM - *Routine Skin Exam Present: intact - *Routine Neurological Exam Present: alert, oriented X3, CN II-XII intact - Routine Psychiatric Exam Present: normal affect, normal thought process Assessment and Plan (1) CAP (community acquired pneumonia) Current visit: Yes Status: Acute Category: Medical Code(s): J18.9 - Pneumonia, unspecified organism (2) Pancreatitis Current visit: Yes Status: Acute Qualifiers: Chronicity: acute Pancreatitis type: unspecified pancreatitis type Category: Medical Code(s): K85.90 - Acute pancreatitis without necrosis or infection, unspecified
--- NOTE | 2017-07-28 10:54 | PC.NURSE ---
OFF UNIT FOR CXR
--- NOTE | 2017-07-28 12:29 | PC.NURSE ---
PATIENT RETURNED FROM CXR AT 1105
--- NOTE | 2017-07-28 16:04 | PC.NURSE ---
PATIENT HAS BEEN SLEEPING OFF AND ON T/O SHIFT. THIS NURSE FEELS THE PATIENT MAY BENEFIT FROM A SLEEP STUDY HE DOES SEEM TO HAVE SOME MODERATE/SEVERE SLEEP APNEA. DENIES PAIN AT THIS TIME. PATIENT IS C/O PERSISTENT COUGH NOT RELIEVED BY TESSLON. LUNGS ARE DIMINISHED T/O WITH SOME FINE CRACKLES IN BILATERAL BASES. CALL LIGHT WITHIN REACH WILL CONTINUE TO MONITOR.
[2017-07-28 16:44] LABS: Adenovirus,PCR Not Detected (NotDetected); Bordetella Pertussis Not Detected (NotDetected); Chlamydophila Pneumoniae, PCR Not Detected (NotDetected); Coronavirus 229E Not Detected (NotDetected); Coronavirus NL63 Not Detected (NotDetected); Coronavirus OC43 Not Detected (NotDetected); Coronovirus HKU1,PCR Not Detected (NotDetected); Human Metapneumovirus Not Detected (NotDetected); Influenza A, PCR Not Detected (NotDetected); Influenza AH1, 2009 Not Detected (NotDetected); Influenza AH1, PCR Not Detected (NotDetected); Influenza AH3,PCR Not Detected (NotDetected); Influenza B, PCR Not Detected (NotDetected); Mycoplasma Pneumoniae, PCR Not Detected (NotDected); Parainfluenza 1, PCR Not Detected (NotDetected); Parainfluenza 2, PCR Not Detected (NotDetected); Parainfluenza 3, PCR Not Detected (NotDetected); Parainfluenza 4, PCR Not Detected (NotDetected); Respiratory Syncytial Virus Not Detected (NotDetected); Rhinovirus/Enterovirus Not Detected (NotDetected)
--- NOTE | 2017-07-28 19:04 | PC.NURSE ---
REPORT GIVEN TO SERGEY GIL RN
[2017-07-29 00:05] VITALS: PULSE 76; PULSE 85
[2017-07-29 04:16] VITALS: BP 115/62; PULSE 66; RESP 18; TEMP 36.1; O2SAT 100
--- NOTE | 2017-07-29 04:35 | PC.NURSE ---
NO ACUTE CHANGES NOTED. PT HAS RESTED WELL THIS SHIFT. C/O SOA X1. REMAINS ON RA @ 93%. LUNG SOUNDS ARE DIMINISHED WITH FINE CRACKLES TO BASES. VSS. NO OTHER CONCERNS AT THIS TIME. WILL CONT TO MONITOR.
--- NOTE | 2017-07-29 06:37 | P.PN_ITS ---
Subjective Patient reports: feels better Exam Vital signs and Labs for Last 24 Hours: Temp Pulse Resp BP Pulse Ox 97.0 F L 66 18 115/62 100 07/29/17 04:16 07/29/17 04:16 07/29/17 04:16 07/29/17 04:16 07/29/17 04:16 Laboratory Results - last 24 hr 07/28/17 06:00: Amylase 106 D, Lipase 1609 H 07/28/17 16:43: Chlamy pneumoniae PCR Not detected, Adenovirus (PCR) Not detected, B.parapertussis DNA PCR Not detected, Coronavirus OC43 (PCR) Not detected, Coronavirus HKU1 (PCR) Not detected, Coronavirus 229E (PCR) Not detected, Coronavirus NL63 (PCR) Not detected, Human Metapneumovir PCR Not detected, Influenza A (H1) PCR Not detected, Influ A (H1N1/09) PCR Not detected , Influenza A (H3) PCR Not detected, Influenza Type A (PCR) Not detected, Influenza Type B (PCR) Not detected, M. pneumoniae (PCR) Not detected, Parainfluenza 1 (PCR) Not detected, Parainfluenza 2 (PCR) Not detected, Parainfluenza 3 (PCR) Not detected, Parainfluenza 4 (PCR) Not detected, RSV (PCR ) Not detected, Entero/Rhino (PCR) Not detected I & O for Last 24 hours: Intake & Output 07/26/17 07/27/17 07/28/17 07/29/17 11:59 11:59 11:59 11:59 Intake Total 2680 / 2680 6407 / 6407 240 / 240 Output Total 600 / 600 1400 / 1400 Balance 2680 / 2680 5807 / 5807 -1160 / -1160 Weight 203 lb 6 oz 203 lb 5.988 oz Microbiology Reports for the Last 24 Hours: Microbiology 07/28/17 10:12 Sputum - Expectorated Sputum Gram Stain - Final 07/26/17 06:50 Urine,Clean Catch Urine Culture - Final Staphylococcus aureus - Constitutional no acute distress - *Routine Respiratory Exam Absent: respiratory distress - *Routine Cardiovascular Exam Present: RRR - *Routine Abdominal Exam Present: soft Progress Note: A&P (1) CAP (community acquired pneumonia) Status: Acute Assessment and plan: as per PCP Current Visit: Yes (2) Pancreatitis Status: Acute Assessment and plan: Uncertain etiology...no definitive evidence of recent alcohol use, medication changes, exposures, or gallstones. F/U AM labs Current Visit: Yes
[2017-07-29 06:47] VITALS: PULSE 72; O2SAT 92
[2017-07-29 07:24] LABS: Amylase 55 U/L (25-125); Lipase 456 u/L (73-393)
--- NOTE | 2017-07-29 07:31 | PC.NURSE ---
PT REPORT HAND OFF TO Wilber WHITFIELD
[2017-07-29 07:35] VITALS: BP 105/60; PULSE 69; RESP 16; TEMP 37; O2SAT 95
--- NOTE | 2017-07-29 09:45 | HMH.DCSUM ---
General - General Admission date: 07/25/17 Discharge date: 07/29/17 HPI HPI: This is a 56-year-old gentleman who presented emergency department with a 3-4 day history of whole body aches . Some nausea, vomiting and intermittent diarrhea has also been noted. Is also noted a a few days . Evaluation emergency department revealed an elevated troponin, and elevated lipase, and possible bilateral pneumonia noted on CT scan. Surgical service was consulted secondary to pancreatitis. Recent alcohol intake and no recent change in medications. Objective Vital signs: Temp Pulse Resp BP Pulse Ox 98.6 F 69 16 105/60 95 07/29/17 07:35 07/29/17 07:35 07/29/17 07:35 07/29/17 07:35 07/29/17 07:35 no acute distress - *Routine HEENT Exam Head: Present: normocephalic Eye: Present: PERRL ENT: Present: mucous membranes moist - *Routine Neck Exam Present: supple, full ROM - *Routine Respiratory Exam Present: decreased breath sounds - *Routine Cardiovascular Exam Present: RRR - *Routine Abdominal Exam Present: soft, normoactive bowel sounds - *Routine Extremities Exam Present: full ROM - *Routine Skin Exam Present: intact - *Routine Neurological Exam Present: alert, oriented X3 - Routine Psychiatric Exam Present: normal affect, normal thought process Hospital Course Hospital Course: Surgery consult see note echo:ONCLUSION: 1. Mildly enlarged left atrium, normal left ventricular size, visually estimated ejection fraction 50% with no obvious regional wall motion abnormality, endocardial surface are somewhat poorly visualized. Grade 1 diastolic dysfunction seen without tissue Doppler evidence of raised left atrial pressure. 2. Mildly enlarged right atrium and right ventricle, contractility of the right ventricle is normal. 3. Mild mitral and tricuspid regurgitation 4. No significant pericardial effusion noted. abd ultrasound: IMPRESSION: Contracted gallbladder with nonspecific gallbladder wall thickening. No obvious stones or pericholecystic fluid ct abd pelvis:IMPRESSION: 1. Bilateral pneumonia in the lung bases 2. Fluid in the small and large bowel with a few air-fluid levels in the large bowel which may be seen with diarrhea disease or enteritis. 3. Unremarkable pancreas on this unenhanced exam Today patient states he feels much better. Lipase has decreased, patient says he is eating well. states that she would likely study done as an outpatient because patient wakes up in the middle of the night gasping. Waiting for Legionella's result. Discharge home with follow-up in the office at the first part of the week. Results Labs on day of discharge: Labs from last 24 hours 07/29/17 07/28/17 06:30 16:43 Amylase 55 Lipase 456 H Chlamy pneumoniae PCR Not detected Adenovirus (PCR) Not detected B.parapertussis DNA PCR Not detected Coronavirus OC43 (PCR) Not detected Coronavirus HKU1 (PCR) Not detected Coronavirus 229E (PCR) Not detected Coronavirus NL63 (PCR) Not detected Human Metapneumovir PCR Not detected Influenza A (H1) PCR Not detected Influ A (H1N1/09) PCR Not detected Influenza A (H3) PCR Not detected Influenza Type A (PCR) Not detected Influenza Type B (PCR) Not detected M. pneumoniae (PCR) Not detected Parainfluenza 1 (PCR) Not detected Parainfluenza 2 (PCR) Not detected Parainfluenza 3 (PCR) Not detected Parainfluenza 4 (PCR) Not detected RSV (PCR) Not detected Entero/Rhino (PCR) Not detected DS: Diagnosis - Discharge Diagnosis (1) CAP (community acquired pneumonia) Status: Acute (2) Pancreatitis Status: Acute Discharge Plan - Patient Discharge Instructions ACTIVITY: Continue current activity DIET: continue same diet Patient Instructions: Fat-Restricted Diet - Follow up Plan Follow up with: Yovany Corley MD [Staff Physician] - 2 weeks Alonso Blankenship MD [Primary Care Provider] - 1
--- NOTE | 2017-07-29 10:32 | P.PN_ITS ---
Internal Medicine - PN: Subj *Date: 07/29/17 *Time: 10:31 Exam Vital signs and Labs for Last 24 Hours: Temp Pulse Resp BP Pulse Ox 98.6 F 69 16 105/60 95 07/29/17 07:35 07/29/17 07:35 07/29/17 07:35 07/29/17 07:35 07/29/17 07:35 Laboratory Results - last 24 hr 07/28/17 16:43: Chlamy pneumoniae PCR Not detected, Adenovirus (PCR) Not detected, B.parapertussis DNA PCR Not detected, Coronavirus OC43 (PCR) Not detected, Coronavirus HKU1 (PCR) Not detected, Coronavirus 229E (PCR) Not detected, Coronavirus NL63 (PCR) Not detected, Human Metapneumovir PCR Not detected, Influenza A (H1) PCR Not detected, Influ A (H1N1/09) PCR Not detected , Influenza A (H3) PCR Not detected, Influenza Type A (PCR) Not detected, Influenza Type B (PCR) Not detected, M. pneumoniae (PCR) Not detected, Parainfluenza 1 (PCR) Not detected, Parainfluenza 2 (PCR) Not detected, Parainfluenza 3 (PCR) Not detected, Parainfluenza 4 (PCR) Not detected, RSV (PCR ) Not detected, Entero/Rhino (PCR) Not detected 07/29/17 06:30: Amylase 55, Lipase 456 H I & O for Last 24 hours: Intake & Output 07/26/17 07/27/17 07/28/17 07/29/17 23:59 23:59 23:59 23:59 Intake Total 2200 / 2200 1480 / 1480 5647 / 5647 240 / 240 Output Total 1999 Balance 2200 / 2200 1480 / 1480 3647 / 3647 240 / 240 Weight 88.564 kg 92.249 kg 92.249 kg Microbiology Reports for the Last 24 Hours: Microbiology 07/28/17 10:12 Sputum - Expectorated Sputum Gram Stain - Final 07/26/17 06:50 Urine,Clean Catch Urine Culture - Final Staphylococcus aureus Assessment and Plan (1) CAP (community acquired pneumonia) Current visit: Yes Status: Acute Category: Medical Code(s): J18.9 - Pneumonia, unspecified organism (2) Pancreatitis Current visit: Yes Status: Acute Qualifiers: Chronicity: acute Pancreatitis type: unspecified pancreatitis type Category: Medical Code(s): K85.90 - Acute pancreatitis without necrosis or infection, unspecified The patient's infection will respond to the chosen ABx?: Yes Is the patient receiving the right drug, dose, and route?: Yes Could a more targeted ABx be ordered?: No (HOME ON MINOCYCLINE AND ZITHROMAX)
--- NOTE | 2017-07-29 11:59 | SW/DCPLANNER ---
Orders have been placed for this patient to receive nebulizer machine along with neb treatments. Patient information has been faxed to [facility]. I have spoke with Charu to confirm patient information was received. Charu has stated that due to diagnosis of Pneumonia this patient does not qualify for machine under insurance benefit. Charu has stated that this machine will cost patient $10/month and patient has agreed to pay this guzman. 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 Patient did not have any other needs at this time.
[2017-08-03 06:37] LABS: Legionella pneumophila Abs. <0.91 OD ratio (0.00-0.90)
== END 2017-07-29 12:00 | disposition home or self-care (01) | DRG 438 ==
LOC: ER 20:03 → 2ND 07-26 08:08
PROVIDERS: Nurse Practitioner Family; Surgery; Admitting Provider Emergency Medicine; Emergency Provider Emergency Medicine; Family Provider Emergency Medicine; PCP Emergency Medicine; Visit Provider Emergency Medicine
DX: K85.90 Acute pancreatitis without necrosis or infection, unspecified (principal); J18.9 Pneumonia, unspecified organism; I10 Essential (primary) hypertension; Z72.0 Tobacco use
CPT/HCPCS: 36415; 70450; 71045; 71046; 74176; 76705; 80053; 80061; 81001; 82150; 82803; 83615; 83690; 84484; 85025; 86713; 87040; 87070; 87086; 87088; 87186; 87205; 87275; 87276; 87486; 87581; 87633; 87798; 93005; 93041; 93306; 94640; 94761; 96365; 96374; 96375; 96376; 99284; J0456; J0595; J2405

== ENCOUNTER → 2017-08-01 14:09 | Outpatient (POV) | payer MEDICAID, SELFPAY ==
[2017-08-01 14:17] VITALS: BP 109/41; PULSE 85; RESP 21; O2SAT 93; BMI 29.2
--- NOTE | 2017-08-01 14:38 | HMH.PAINSOAP ---
[facility] Pain Management SOAP Note Subjective:: Patient is a pleasant 56-year-old white male who presents today to discuss his recent medial branch blocks. Patient states he did not get much relief post injection. Actually he states he had nausea and vomiting afterwards. Patient recently had a bout of pneumonia in which he spent a week in the hospital for. Patient states he is doing somewhat better now. Patient's pain is a 6 out of 10 today. Patient's pain is in his back and bilateral legs. Patient states the pain radiates down to his toes at times. Patient is unable to take anti-inflammatories due to gastric bleeding. Patient states that range of motion increases his pain. Patient is on medication from his primary care provider that helps with his pain. Patient also describes tenderness over his bilateral SI joints. Patient would also like to discuss a TENS unit. ROS General: no recent weight change, no fever, no sleep disturbances Respiratory:cough Cardiovascular/Peripheral Vascular: No chest pain, No palpitations, no edema, no shortness of breath. Gastrointestinal: no incontinence, normal bowel movements reported Genitourinary: no incontinence Musculoskeletal: Back pain Psychiatric: normal mood/ affect Neurological: [denies weakness in extremities], [denies balance issues] Objective:: Physical Exam General: Alert and oriented x3, no acute distress, pleasant and cooperative, [on room air] Lungs: Resps E/U, Symmetrical chest expansion, Musculoskeletal: Flexion and extension of lumbar spine somewhat guarded secondary to pain, deep tendon reflexes normal, strength in upper and lower extremities [5/5], [abnormal gait noted] Neurological: speech clear, magazine publisher equal, no gross sensory deficits Assessment:: Degenerative disc disease of the lumbar spine, lumbar spondylosis, bilateral sacroiliitis Plan:: The patient and I had a long discussion about potential options for therapy. Patient has had lumbar epidurals in the past with good relief however today he is having bilateral SI joint pain. We discussed the potential of a bilateral SI joint injection after he is over his pneumonia. He agrees and wishes to proceed. We also discussed spinal cord stimulation. If this injection fails I believe that we should look into potentially having a spinal cord stimulation trial. Patient has completed physical therapy in the past with minimal relief. Patient unable to take anti-inflammatory medications. We will also write an order for the patient to receive a TENS unit. I believe that this may help the patient as well. This note was dictated using voice recognition software and may contain omissions or errors
--- NOTE | 2017-08-01 14:42 | P.CONS_ITS ---
[facility] Pain Management SOAP Note Subjective:: Patient is a pleasant 56-year-old white male who presents today to discuss his recent medial branch blocks. Patient states he did not get much relief post injection. Actually he states he had nausea and vomiting afterwards. Patient recently had a bout of pneumonia in which he spent a week in the hospital for. Patient states he is doing somewhat better now. Patient's pain is a 6 out of 10 today. Patient's pain is in his back and bilateral legs. Patient states the pain radiates down to his toes at times. Patient is unable to take anti- inflammatories due to gastric bleeding. Patient states that range of motion increases his pain. Patient is on medication from his primary care provider that helps with his pain. Patient also describes tenderness over his bilateral SI joints. Patient would also like to discuss a TENS unit. ROS General: no recent weight change, no fever, no sleep disturbances Respiratory:cough Cardiovascular/Peripheral Vascular: No chest pain, No palpitations, no edema, no shortness of breath. Gastrointestinal: no incontinence, normal bowel movements reported Genitourinary: no incontinence Musculoskeletal: Back pain Psychiatric: normal mood/ affect Neurological: [denies weakness in extremities], [denies balance issues] Objective:: Physical Exam General: Alert and oriented x3, no acute distress, pleasant and cooperative, [ on room air] Lungs: Resps E/U, Symmetrical chest expansion, Musculoskeletal: Flexion and extension of lumbar spine somewhat guarded secondary to pain, deep tendon reflexes normal, strength in upper and lower extremities [5/5], [abnormal gait noted] Neurological: speech clear, 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 Patient has had lumbar epidurals in the past with good relief however today he is having bilateral SI joint pain. We discussed the potential of a bilateral SI joint injection after he is over his pneumonia. He agrees and wishes to proceed. We also discussed spinal cord stimulation. If this injection fails I believe that we should look into potentially having a spinal cord stimulation trial. Patient has completed physical therapy in the past with minimal relief. Patient unable to take anti-inflammatory medications. We will also write an order for the patient to receive a TENS unit. I believe that this may help the patient as well. This note was dictated using voice recognition software and may contain omissions or errors
== END ==
PROVIDERS: Family Provider Emergency Medicine; PCP Emergency Medicine; Visit Provider Clinical Nurse Specialist Family Health
DX: M47.9 Spondylosis, unspecified (principal)
CPT/HCPCS: 99212

== ENCOUNTER → 2017-08-05 16:00 | Outpatient (CLI) | payer MEDICAID, SELFPAY ==
[2017-08-05 17:49] LABS: Amphetamine/Metha Screen,Urine Negative ng/mL (<1000); Barbiturates Screen,Urine Negative ng/mL (<200); Benzodiazepines Screen,Urine Negative ng/mL (200); Cannabinoid Screen,Urine Negative ng/mL (<50); Cocaine Screen,Urine Negative ng/g (<300); Methadone Screen,Urine Negative ng/mL (<300); Opiate Screen,Urine Positive ng/mL (<300); Phencyclidine Screen,Urine Negative ng/mL (<25)
== END ==
PROVIDERS: Visit Provider Emergency Medicine
DX: Z79.899 Other long term (current) drug therapy (principal)
CPT/HCPCS: 80305

== ENCOUNTER → 2017-12-05 12:19 | Outpatient (CLI) | payer MEDICAID, SELFPAY ==
[2017-12-05 14:36] LABS: Anion Gap 12.1 mEq/L (5-15); Blood Urea Nitrogen 9 mg/dL (7-18); Calcium 9.1 mg/dL (8.5-10.1); Carbon Dioxide 30 mmol/L (21.0-32.0); Chloride 102 mmol/L (98-107); Creatine Kinase 89 U/L (39-308); Creatinine,Serum 0.85 mg/dL (0.70-1.30); Estimated Glomerular Filt Rate 93 ml/min (>60); GFR (African American) 113 ML/MIN (>60); Glucose 151 mg/dL (74-106); Potassium 4.1 mmoL/L (3.5-5.1); Sodium 140 mmol/L (136-145); Troponin I 0.05 ng/ml (0.00-0.06)
== END ==
PROVIDERS: Visit Provider Urology
DX: R94.31 Abnormal electrocardiogram [ECG] [EKG] (principal); R74.8 Abnormal levels of other serum enzymes; R55 Syncope and collapse; R06.09 Other forms of dyspnea; I10 Essential (primary) hypertension; F17.200 Nicotine dependence, unspecified, uncomplicated; Z82.49 Family history of ischemic heart disease and other diseases of the circulatory system
CPT/HCPCS: 36415; 80048; 82550; 84484

== ENCOUNTER → 2017-12-07 11:15 | Outpatient (CLI) | payer MEDICAID, SELFPAY ==
--- NOTE | 2017-12-07 11:17 | NM_ITS ---
History and Indications: Hypertension, tobacco use, family history, shortness of breath, syncope and fatigue Procedure: Patient exercised on Hao protocol 8 minutes, resting heart rate was 52 bpm resting blood pressure 96/54, with exercise maximum heart rate achieved was 1 41 bpm which is equal to 86% of the maximum predicted heart rate and the blood pressure was 164/72. The test was started due to shortness of breath and fatigue patient has mild chest tightness also. Patient has good exercise capacity achieved 10.1mets of workload on treadmill, the blood pressure response to exercise was adequate. Electrocardiogram: Resting electrocardiogram showed sinus bradycardia, with exercise less than 1.[address] segment depression noted from the baseline EKG. The EKG portion of the exercise Myoview is negative for ischemia. Cardiac stress and resting SPECT images: Cardiac stress and resting SPECT images were obtained using technetium 99 Myoview 30.6 mCi at stress and 10.5 mCi at stress, gated SPECT further analysis of segmental wall motion and calculation of the ejection fraction also done. Cardiac stress and the suspect images show mild fixed defect in the inferior wall which is likely secondary to soft tissue attenuation, no reversible ischemia seen. Computer derived ejection fraction is 62 percent, with no obvious regional wall motion abnormality, right ventricle is mildly enlarged with contractility. Conclusion: 1. The EKG portion of the exercise Myoview is negative for ischemia, patient has good exercise capacity achieved 10.1mets of workload on treadmill, the blood pressure response to exercise was adequate, patient complained of mild chest tightness with exercise. 2. No obvious scintigraphic evidence of reversible ischemia at this level of exercise seen, computer derived ejection fraction is 62% with no obvious regional wall motion abnormality, right ventricle is mildly enlarged with normal contractility.
--- NOTE | 2017-12-07 14:14 | HMH.ITSHM ---
lisinopril hctz neurontin oxycodone
== END ==
PROVIDERS: Family Provider Emergency Medicine; PCP Emergency Medicine; Visit Provider Internal Medicine
DX: R06.09 Other forms of dyspnea (principal); R55 Syncope and collapse; R94.31 Abnormal electrocardiogram [ECG] [EKG]; I10 Essential (primary) hypertension; F17.200 Nicotine dependence, unspecified, uncomplicated; Z82.49 Family history of ischemic heart disease and other diseases of the circulatory system
CPT/HCPCS: 78452; 93017; A9502

== ENCOUNTER → 2019-10-22 12:51 | Outpatient (CLI) | payer MEDICAID, SELFPAY ==
[2019-10-22 13:40] VITALS: PULSE 64; PULSE 70
--- NOTE | 2019-10-22 14:23 | US_ITS ---
PROCEDURE: US THYROID CLINICAL INDICATION: Nodules COMPARISON: No exams were available for comparison FINDINGS: Right lobe: 4.1 x 1.5 x 1.5 cm Left lobe: 4.5 x 1.6 x 1.4 cm. Isthmus: Mildly thickened at 5 mm Additional findings: There is homogeneous echogenicity. No nodules or cysts IMPRESSION: Mildly enlarged thyroid gland otherwise negative. No nodules apparent. Dictated by: Jacob Heller MD 10/22/2019 16:57 Electronically signed by Jacob Heller MD in [place] 10/22/2019 16:57
== END ==
PROVIDERS: PCP Nurse Practitioner Family; Visit Provider Nurse Practitioner Family
DX: E04.2 Nontoxic multinodular goiter (principal); R06.02 Shortness of breath
CPT/HCPCS: 76536; 94060; 94618; 94640; 94727; 94729

== ENCOUNTER 2022-11-08 11:54 | Emergency (ER) | payer MEDICAID, SELFPAY ==
--- NOTE | 2022-11-08 13:28 | EXP.UTC ---
Discharge Plan Disposition Patient Disposition: Home, Self-Care Condition: Good Prescriptions Prescriptions: New amoxicillin-pot clavulanate 875-125 mg Tablet 1 tab PO Q12H Qty: 20 0RF No Action benzonatate [Tessalon Perles] 100 mg capsule 100 mg PO TID PRN (Reason: cough) Qty: 14 0RF famotidine 40 mg tablet 40 mg PO DAILY tamsulosin [Flomax] 0.4 mg capsule 0.4 mg PO DAILY lisinopril-hydrochlorothiazide 10-12.5 mg tablet 1 tab PO DAILY albuterol sulfate 90 mcg/actuation HFA aerosol inhaler See Rx Instructions .ROUTE .COMPLEX Rx Instructions: INHALE 2 PUFFS BY MOUTH FOUR TIMES A DAY NEEDED FOR SHORTNESS OF BREATH OR WHEEZING Referrals Follow up/Referrals: Levy Urbina MD [Primary Care Provider] - See instructions Activity Restrictions/Add. Instructions Additional Instructions/Restrictions: Take the medications as directed. Follow up with your dentist. GO TO THE ER FOR ANY WORSENING SYMPTOMS Clinical Impressions Clinical Impression: Dental abscess Instructions Patient Instructions: Tooth Abscess, DI for Tooth Abscess Discharge ED Provider: Zoran Cruz [facility] General Stated complaint: mouth pain Time Seen by Provider: 11/08/22 13:28 History of Present Illness Provider Complaint: He states that for the past 1 week he has had sinus congestion. Related Data Home Medications Medication Instructions Recorded Confirmed albuterol sulfate 90 mcg/actuation See Rx Instructions .Route 11/08/22 aerosol inhaler .COMPLEX soa famotidine 40 mg tablet 40 mg PO DAILY gerd 11/08/22 11/08/22 lisinopril 10 1 tab PO DAILY High blood pressure 11/08/22 11/08/22 mg-hydrochlorothiazide 12.5 mg tablet tamsulosin 0.4 mg capsule (Flomax) 0.4 mg PO DAILY bph 11/08/22 11/08/22 Previous Rx's Medication Instructions Recorded benzonatate 100 mg capsule 100 mg PO TID PRN cough #14 caps 10/09/19 (Tessalon Perles) amoxicillin 875 mg-potassium 1 tab PO Q12H #20 tabs 11/08/22 clavulanate 125 mg tablet Allergies Allergy/AdvReac Type Severity Reaction Status Date / Time No Known Allergies Allergy Verified 11/08/22 13:28 [facility] Disclaimer: The information contained in this section may have been updated after the patient was seen, as this information can be updated by other users. Medical History Benign prostatic hyperplasia COPD (chronic obstructive pulmonary disease) Hypertension Surgical History No significant past surgical history Family History Other No significant family history Social History Smoking Status: Current every day smoker tobacco type: cigarettes packs per day: 1 alcohol intake: never substance use type: denies use current occupational status: employed Travel in the last 8 weeks: None household members: spouse housing: house current occupational exposures/hazards: No ROS Obtained: Yes All systems reviewed & no additional complaints except as documented Constitutional Constitutional: Reports poor appetite Eyes Eyes: Reports system reviewed and no additional complaints, except as documented ENT Ears, Nose, Mouth, and Throat: Reports as per HPI Cardiovascular Cardiovascular: Reports system reviewed and no additional complaints, except as documented and Denies chest pain Respiratory Respiratory: Denies shortness of breath, Denies chest congestion, Reports cough, Denies stridor and Denies wheezing Gastrointestinal Gastrointestingal: Reports system reviewed and no additional complaints, except as documented; Denies abdominal pain, diarrhea or vomiting Musculoskeletal Musculoskeletal: Reports system reviewed and no additional complaints, except as documented and Denies arthralgias Integumentary/
[2022-11-08 13:29] VITALS: BP 137/83; PULSE 64; RESP 16; TEMP 36.8; O2SAT 100; BMI 26.4
[2022-11-08 13:50] VITALS: BP 137/83; PULSE 64; RESP 16; TEMP 36.8; O2SAT 100
== END 2022-11-08 13:52 | disposition home or self-care (01) ==
PROVIDERS: Emergency Provider Nurse Practitioner Family; PCP Emergency Medicine
DX: K04.7 Periapical abscess without sinus (principal); F17.210 Nicotine dependence, cigarettes, uncomplicated; J44.9 Chronic obstructive pulmonary disease, unspecified; I10 Essential (primary) hypertension
CPT/HCPCS: 99204; 99212; G0463